=== PATIENT | male | born 1930 | race Caucasian/White ===

== ENCOUNTER → 2017-01-03 | Outpatient (CLI) | payer OTHER, MEDICARE | LOC: GIMAGING 11:29 | PROVIDERS: ATTEND Nurse Practitioner Acute Care | DX: J98.11 Atelectasis (principal) | CPT/HCPCS: 71020-PO ==

== ENCOUNTER → 2017-01-08 | Outpatient (CLI) | payer OTHER, MEDICARE | LOC: BMCIMAGING 16:08 | PROVIDERS: ATTEND Internal Medicine | DX: J18.9 Pneumonia, unspecified organism (principal); J44.9 Chronic obstructive pulmonary disease, unspecified; R06.00 Dyspnea, unspecified; R05 Cough | CPT/HCPCS: 71020; G0463 ==

== ENCOUNTER → 2017-01-13 | Outpatient (CLI) | payer OTHER, MEDICARE | LOC: FIMAGING 10:15 | PROVIDERS: ATTEND Internal Medicine | DX: J18.1 Lobar pneumonia, unspecified organism (principal); I25.10 Atherosclerotic heart disease of native coronary artery without angina pectoris | CPT/HCPCS: 71250; 90662; G0008; G0463 ==

== ENCOUNTER → 2018-06-02 | Outpatient (CLI) | payer OTHER, MEDICARE | LOC: BMCIMAGING 07:58 | PROVIDERS: ATTEND Urology | DX: R33.9 Retention of urine, unspecified (principal); N28.1 Cyst of kidney, acquired; Z85.46 Personal history of malignant neoplasm of prostate ==